=== PATIENT | male | born 1965 | race Caucasian/White ===

== ENCOUNTER 2018-03-06 14:04 | Inpatient (IN) | payer OTHER ==
[2018-03-06 15:24] VITALS: BMI 24.9
[2018-03-06] MEDS ORDERED: MELATONIN 5 MG TABLETS PO PRN (22:00)
--- NOTE | 2018-03-06 23:30 | HP ---
COWS - Scale Resting Pulse: 0= [place] 80 or Below Sweatin= Chills/Flushing Restless Observation: 1= Difficult to Sit Still Pupil Size: 0= Normal to Room Light Bone or Joint Aches: 1= Mild Discomfort Runny Nose/ Eye Tearin= Runny Nose/Eyes GI Upset > 30mins: 3= Vomiting/Diarrhea Tremor Observation: 1= Tremor [place], Not Seen Yawning Observation: 2= >3x During Session Anxiety or Irritability: 1=Feels Anxious/Irritable Goose Flesh Skin: 0=Smooth Skin COWS Score: 12 Admission [facility] - HPI Chief Complaint: " I am here for detox and I want to go to rehab." Allergies/Adverse Reactions: Allergies Allergy/AdvReac Type Severity Reaction Status Date / Time No Known Allergies Allergy Verified 03/06/18 17:21 History of Present Illness: 53 yo male with hx IV heroin and nicotine dependence is here seeking detox. PMHX : HIV +, Hep C, neuropathy, anxiety. Denies suicidal / homicidal ideation or suicide attempts. Reports longest year of sobriety while incarcerated, reports relapsed 8 months ago after he was release from senior care. Reports last detox 1.5 months at [facility]. Exam Limitations: No Limitations - Ebola screening Have you traveled outside of the country in the last 21 days: No (N) Have you had contact with anyone from an Ebola affected area: No Have you been sick,other than usual withdrawal symptoms: No Do you have a fever: No - Review of Systems Constitutional: Chills, Changes in sleep, Unintentional Wgt. Loss EENT: reports: Nose Congestion Respiratory: reports: No Symptoms reported Cardiac: reports: No Symptoms Reported GI: reports: Nausea, Poor Appetite, Poor Fluid Intake : reports: No Symptoms Reported Musculoskeletal: reports: Back Pain, Joint Pain Integumentary: reports: No Symptoms Reported Neuro: reports: Numbness (dx neuropathy on both feet) Endocrine: reports: Increased Thirst Hematology: reports: No Symptoms Reported Psychiatric: reports: Orientated x3, Depressed Other Systems: Reviewed and Negative Patient History - Patient Medical History Hx Anemia: No Hx Asthma: No Hx Chronic Obstructive Pulmonary Disease (COPD): No Hx Cancer: No Hx Cardiac Disorders: No Hx Congestive Heart Failure: No Hx Hypertension: No Hx Hypercholesterolemia: No Hx Pacemaker: No HX Cerebrovascular Accident: No Hx Seizures: No Hx Dementia: No Hx Diabetes: No Hx Gastrointestinal Disorders: No Hx Liver Disease: Yes (Hep C , pending MRI ) Hx Genitourinary Disorders: No Hx Sexually Transmitted Disorders: No Hx Renal Disease (ESRD): No Hx Thyroid Disease: No Hx Human Immunodeficiency Virus (HIV): Yes (HIV + on Genvoya ) Hx Hepatitis C: Yes Hx Depression: Yes Hx Suicide Attempt: No Hx Bipolar Disorder: No Hx Schizophrenia: No - Patient Surgical History Past Surgical History: Yes Hx Neurologic Surgery: No Hx Cataract Extraction: No Hx Cardiac Surgery: No Hx Lung Surgery: No Hx Breast Surgery: No Hx Breast Biopsy: No Hx Abdominal Surgery: No Hx Appendectomy: No Hx Cholecystectomy: No Hx Genitourinary Surgery: No Hx Section: No Hx Orthopedic Surgery: Yes Other Surgical History: RT INDEX FINGER SX Anesthesia Reaction: No - PPD History Previous Implant?: Yes Documented Results: Positive w/o proof PPD to be Administered?: No - Reproductive History Patient is a Female of Child Bearing Age (11 -55 yrs old): No - Smoking Cessation Smoking history: Current every day smoker Have you smoked in the past 12 months: Yes Aproximately how many cigarettes per day: 20 Hx Chewing Tobacco Use: No Initiated information on smoking cessation: Yes 'Breaking Loose' booklet given: 03/06/18 - Substance & Tx. History Hx Alcohol Use: No Hx Substance Use: Yes Substance Use Type: Heroin Hx Substance Use Treatment: Yes (Reports last detox 1.5 months at [facility].) - Substances Abused Heroin Route: Injection Frequency: Daily Amount used: 5 bags Age of first use: 18 Date of Last Use: 03/05/18 Non-Rx Methadone Route: Oral Frequency: Daily Amount used: 80mg Age of first use: 30 Date of Last Use: 03/05/18 Family Disease History - Family Disease History Family Disease History: Diabetes: Grandparent ( ), Other: Father ( , kidney failure ), Mother (alive and well ) Admission Physical Exam BHS - Vital Signs Vital Signs: Vital Signs - 24 hr 03/06/18 15:23 Temperature 97.8 F Pulse Rate 72 Respiratory 20 Rate Blood Pressure 107/71 - Physical General Appearance: Yes: Mild Distress, Thin, Sweating, Anxious HEENTM: Yes: EOMI, Hearing grossly Normal, Normal ENT Inspection, Normocephalic , Normal Voice, LUIS, Pharynx Normal, Tm's normal Respiratory: Yes: Chest Non-Tender, Lungs Clear, Normal Breath Sounds, No Respiratory Distress, No Accessory Muscle Use Neck: Yes: No masses,lesions,Nodules, Trachea in good position Breast: Yes: Breast Exam Deferred Cardiology: Yes: Regular Rhythm, Regular Rate Abdominal: Yes: Normal Bowel Sounds, Non Tender, Flat, Soft Genitourinary: Yes: Within Normal Limits Back: Yes: Normal Inspection Musculoskeletal: Yes: full range of Motion, Gait Steady, Pelvis Stable Extremities: Yes: Normal Capillary Refill, Normal Inspection, Normal Range of Motion, Non-Tender Neurological: Yes: vice president of communications II-XII NML intact, Fully Oriented, Alert, Motor Strength 5/5, Depressed Affect Integumentary: Yes: Normal Color, Warm, Moist Lymphatic: Yes: Within Normal Limits - Diagnostic (1) Opioid dependence with withdrawal Current Visit: Yes Status: Acute (2) Nicotine dependence Current Visit: Yes Status: Acute Qualifiers: Nicotine product type: cigarettes (3) Neuropathy Current Visit: Yes Status: Chronic (4) Anxious mood Current Visit: Yes Status: Acute (5) HIV (human immunodeficiency virus infection) Current Visit: Yes Status: Chronic Comment: on Genvoya Cleared for Admission [facility] - Detox or Rehab [facility] Level of Care: Medically Managed Detox Regimen/Protocol: Methadone [facility] Breath Alcohol Content Breath Alcohol Content: 0 Urine Drug Screen - Results Drug Screen Negative: No Urine Drug Screen Results: OPI-Opiates, MTD-Methadone
[2018-03-06] MEDS ORDERED: ACETAMINOPHEN 325 MG TABLET (FP) PO PRN (23:37)
[2018-03-06] MEDS ORDERED: MENTHOL/PHENOL 1 EACH UD MM PRN (23:37)
[2018-03-06] MEDS ORDERED: IBUPROFEN 400 MG TABLET (FP) PO PRN (23:37)
[2018-03-06] MEDS ORDERED: hydrOXYzine PAMOATE 50 MG CAPSULE (FP) PO PRN (23:37)
[2018-03-06] MEDS ORDERED: LOPERAMIDE HCL 2 MG CAPSULE PO PRN (23:37)
[2018-03-06] MEDS ORDERED: MAG HYDROX/AL HYDROX/SIMETH 30 ML UNIT-DOSE CUP PO PRN (23:37)
[2018-03-06] MEDS ORDERED: MAGNESIUM CITRATE 300 ML BOTTLE PO PRN (23:37)
[2018-03-06] MEDS ORDERED: guaiFENesin/D-METHORPHAN HB 10 ML UNIT-DOSE CUPS PO PRN (23:37)
[2018-03-06] MEDS ORDERED: NICOTINE POLACRILEX 2 MG GUM BC PRN (23:37)
[2018-03-06] MEDS ORDERED: MAGNESIUM HYDROX 2400MG/30ML ORAL SUSPENSION 30 ML CUP PO PRN (23:37)
[2018-03-07] MEDS ORDERED: METHADONE HCL 10 MG TABLET (FOR DETOX USE ONLY) PO ONE ×2 (01:22→23:00)
[2018-03-07] MEDS: diazePAM 5 MG TABLET PO PRN ×2 (01:33→10:40)
[2018-03-07] MEDS ORDERED: GABAPENTIN 300 MG CAPSULE (FP) PO SCH (06:00)
[2018-03-07] MEDS: METHADONE HCL 10 MG TABLET (FOR DETOX USE ONLY) PO ONE ×3 (10:00→11:08)
[2018-03-07 10:11] LABS: HEMATOCRIT 41.4 % (35.4-49); HEMOGLOBIN 14.2 GM/dL (11.7-16.9); MCH 30.8 pg (25.7-33.7); MCHC 34.2 g/dl (32.0-35.9); MEAN CELL VOLUME 90.2 fl (80-96); MEAN PLT VOLUME 9.6 fl (7.5-11.1); PLATELET COUNT 158 K/MM3 (134-434); RDW 13.5 % (11.9-15.9); WHITE BLOOD COUNT 4.1 K/mm3 (4.0-10.0)
[2018-03-07 10:19] LABS: CHLORIDE 104 mmol/L (98-107); POTASSIUM 4.4 mmol/L (3.5-5.1); SODIUM 139 mmol/L (136-145)
[2018-03-07 10:28] LABS: ALBUMIN 3.3 g/dl (3.4-5.0); ALK PHOS 62 U/L (45-117); ANION GAP 5 (8-16); BILIRUBIN,TOTAL 0.6 mg/dL (0.2-1.0); BLOOD UREA NITROGEN 13 mg/dL (7-18); CALCIUM 8.1 mg/dL (8.5-10.1); CO2 30 mmol/L (21-32); CREATININE 0.8 mg/dL (0.7-1.3); GLUCOSE,RANDOM 88 mg/dL (74-106); SGOT/AST 131 U/L (15-37); SGPT/ALT 154 U/L (12-78)
[2018-03-07] MEDS: NICOTINE 21 MG/24 HOURS TOPICAL PATCH TD SCH (10:39)
[2018-03-07] MEDS: ELVITEG/COB/EMTRI/TENOF (GENVOYA) TABLET (NF) PO SCH (10:41)
[2018-03-07] MEDS: PRENATAL VITAMINS W/ FOLIC ACID TABLET (FP) PO SCH (10:41)
--- NOTE | 2018-03-07 11:05 | CONSULT ---
[facility] Psychiatric Consult - Data Date of interview: 03/07/18 Admission source: [facility] Identifying data: The patient is 53 yo H single male father of 3,resides in Supportive Housing,supported by PA. Substance Abuse History: Patient reports starting using Heroin injection since 18 years old ,currently about 5 bags daily IV.,[address] using street Methadone about 8- mg po daily since 30 yo. Medical History: Significant for HIV+,Neuropathy. Psychiatric History: Patient reports first contact with psychiatrist was in 1999 while being in [facility] treatment to address anxiety,mood instability.He was placed on Trazodone,then on Xanax and Vistaril.REports no psychiatric admissions,no history of suicidal attempts.Patient is not under psychiatric care.REpors sleeping difficulties on and off,requesting TRazodone 100 mg po hs. Physical/Sexual Abuse/Trauma History: denies Mental Status Exam - Mental Status Exam Alert and Oriented to: Time, Place, Person Cognitive Function: Grossly Intact Patient Appearance: Unkempt Mood: Sad, Irritable Affect: Mood Congruent, Labile Patient Behavior: Cooperative Speech Pattern: Clear Voice Loudness: Normal Thought Process: Goal Oriented Thought Disorder: Not Present Hallucinations: Denies Suicidal Ideation: Denies Homicidal Ideation: Denies Insight/Judgement: Fair Sleep: Fair Appetite: Fair Muscle strength/Tone: Normal Gait/Station: Normal Psychiatric Findings - Problem List ([place] 1, 2,3) (1) Nicotine dependence Current Visit: Yes Status: Chronic Qualifiers: Nicotine product type: cigarettes (2) HIV (human immunodeficiency virus infection) Current Visit: Yes Status: Chronic Comment: on Genvoya (3) Neuropathy Current Visit: Yes Status: Chronic (4) Opioid dependence Current Visit: Yes Status: Chronic (5) Substance induced mood disorder Current Visit: Yes Status: Chronic - Initial Treatment Plan Initial Treatment Plan: Trazodone 100 mg po hs,Neurontin 600 mg po tid(for neuropathy from medical dr).
[2018-03-07] MEDS: GABAPENTIN 300 MG CAPSULE (FP) PO SCH ×3 (11:19→22:29)
--- NOTE | 2018-03-07 11:27 | PN ---
BHS COWS - Scale Resting Pulse: 0= [place] 80 or Below Sweatin= Chills/Flushing Restless Observation: 1= Difficult to Sit Still Pupil Size: 1= Pupils >than Normal Bone or Joint Aches: 1= Mild Discomfort Runny Nose/ Eye Tearin= Nasal Congestion GI Upset > 30mins: 1= Stomach Cramp Tremor Observation of Outstretched Hands: 1= Tremor [place], Not Seen Yawning Observation: 2= >3x During Session Anxiety or Irritability: 2=Irritable/Anxious Goose Flesh Skin: 0=Smooth Skin COWS Score: 11 BHS Progress Note (SOAP) Subjective: body ache sweat tremor mild diarrhea tolerated food and fluid well trouble sleep at night Objective: 03/07/18 11:25 Vital Signs Temperature 98.1 F 03/07/18 10:20 Pulse Rate 78 03/07/18 10:20 Respiratory Rate 16 03/07/18 10:20 Blood Pressure 101/74 03/07/18 10:20 O2 Sat by Pulse Oximetry (%) Laboratory Last Values WBC 4.1 K/mm3 (4.0-10.0) 03/07/18 07:30 RBC 4.60 M/mm3 (4.00-5.60) 03/07/18 07:30 Hgb 14.2 GM/dL (11.7-16.9) 03/07/18 07:30 Hct 41.4 % (35.4-49) 03/07/18 07:30 MCV 90.2 fl (80-96) 03/07/18 07:30 MCH 30.8 pg (25.7-33.7) 03/07/18 07:30 MCHC 34.2 g/dl (32.0-35.9) 03/07/18 07:30 RDW 13.5 % (11.9-15.9) 03/07/18 07:30 Plt Count 158 K/MM3 (134-434) 03/07/18 07:30 MPV 9.6 fl (7.5-11.1) 03/07/18 07:30 Sodium 139 mmol/L (136-145) 03/07/18 07:30 Potassium 4.4 mmol/L (3.5-5.1) 03/07/18 07:30 Chloride 104 mmol/L (98-107) 03/07/18 07:30 Carbon Dioxide 30 mmol/L (21-32) 03/07/18 07:30 Anion Gap 5 (8-16) L 03/07/18 07:30 BUN 13 mg/dL (7-18) 03/07/18 07:30 Creatinine 0.8 mg/dL (0.7-1.3) 03/07/18 07:30 Creat Clearance w eGFR > 60 (>60) 03/07/18 07:30 Random Glucose 88 mg/dL (74-106) 03/07/18 07:30 Calcium 8.1 mg/dL (8.5-10.1) L 03/07/18 07:30 Total Bilirubin 0.6 mg/dL (0.2-1.0) 03/07/18 07:30 AST 131 U/L (15-37) H 03/07/18 07:30 ALT 154 U/L (12-78) H 03/07/18 07:30 Alkaline Phosphatase 62 U/L (45-117) 03/07/18 07:30 Total Protein 8.0 g/dl (6.4-8.2) 03/07/18 07:30 Albumin 3.3 g/dl (3.4-5.0) L 03/07/18 07:30 lab noted repeat sgot sgat Assessment: 03/07/18 11:26 withdrawal sx 03/07/18 11:26 liver enzyme elevation Plan: continue detox repeat lab
--- NOTE | 2018-03-07 12:03 | EKG ---
Test Reason : Blood Pressure : / mmHG Vent. Rate : 060 BPM Atrial Rate : 060 BPM P-R Int : 188 ms QRS Dur : 082 ms QT Int : 392 ms P-R-T Axes : 067 064 053 degrees QTc Int : 392 ms NORMAL SINUS RHYTHM NORMAL ECG NO PREVIOUS ECGS AVAILABLE Confirmed by KAROL SOFIA, BALAJI ([id number]) on 03/07/2018 12:02:44 PM Referred By: Confirmed By:BALAJI ROBERSON MD
[2018-03-07] MEDS: hydrOXYzine PAMOATE 50 MG CAPSULE (FP) PO SCH ×2 (14:26→22:31)
[2018-03-07 16:17] LABS: URINE APPEARANCE TURBID; URINE BILIRUBIN NEGATIVE (<2.0 mg/dL); URINE COLOR DKYELLOW; URINE GLUCOSE (UA) NEGATIVE (NEGATIVE); URINE KETONE NEGATIVE (NEGATIVE); URINE LEUK ESTERASE NEGATIVE (NEGATIVE); URINE NITRITE NEGATIVE (NEGATIVE); URINE PROTEIN NEGATIVE (NEGATIVE); URINE UROBILINOGEN 4.0 E.U/dl mg/dL (0.2-1.0)
[2018-03-07] MEDS: THIAMINE HCL 100 MG TABLET (FP) PO SCH (22:29)
[2018-03-07] MEDS: traZODone HCL 100 MG TABLET (FP) PO SCH (22:29)
[2018-03-08] MEDS: hydrOXYzine PAMOATE 50 MG CAPSULE (FP) PO SCH ×3 (05:36→22:26)
[2018-03-08] MEDS: GABAPENTIN 300 MG CAPSULE (FP) PO SCH ×3 (05:36→22:26)
[2018-03-08] MEDS ORDERED: METHADONE HCL 10 MG TABLET (FOR DETOX USE ONLY) PO ONE (10:00)
--- NOTE | 2018-03-08 10:24 | PN ---
BHS COWS - Scale Resting Pulse: 0= [place] 80 or Below Sweatin= Chills/Flushing Restless Observation: 1= Difficult to Sit Still Pupil Size: 1= Pupils >than Normal Bone or Joint Aches: 1= Mild Discomfort Runny Nose/ Eye Tearin= Nasal Congestion GI Upset > 30mins: 1= Stomach Cramp Tremor Observation of Outstretched Hands: 1= Tremor [place], Not Seen Yawning Observation: 2= >3x During Session Anxiety or Irritability: 1=Feels Anxious/Irritable Goose Flesh Skin: 0=Smooth Skin COWS Score: 10 BHS Progress Note (SOAP) Subjective: joint pain body ache anxiety tremor trouble sleep at night gi distress Objective: 03/08/18 10:25 Vital Signs Temperature 98.1 F 03/08/18 10:19 Pulse Rate 81 03/08/18 10:19 Respiratory Rate 17 03/08/18 10:19 Blood Pressure 113/67 03/08/18 10:19 O2 Sat by Pulse Oximetry (%) Laboratory Last Values WBC 4.1 K/mm3 (4.0-10.0) 03/07/18 07:30 RBC 4.60 M/mm3 (4.00-5.60) 03/07/18 07:30 Hgb 14.2 GM/dL (11.7-16.9) 03/07/18 07:30 Hct 41.4 % (35.4-49) 03/07/18 07:30 MCV 90.2 fl (80-96) 03/07/18 07:30 MCH 30.8 pg (25.7-33.7) 03/07/18 07:30 MCHC 34.2 g/dl (32.0-35.9) 03/07/18 07:30 RDW 13.5 % (11.9-15.9) 03/07/18 07:30 Plt Count 158 K/MM3 (134-434) 03/07/18 07:30 MPV 9.6 fl (7.5-11.1) 03/07/18 07:30 Sodium 139 mmol/L (136-145) 03/07/18 07:30 Potassium 4.4 mmol/L (3.5-5.1) 03/07/18 07:30 Chloride 104 mmol/L (98-107) 03/07/18 07:30 Carbon Dioxide 30 mmol/L (21-32) 03/07/18 07:30 Anion Gap 5 (8-16) L 03/07/18 07:30 BUN 13 mg/dL (7-18) 03/07/18 07:30 Creatinine 0.8 mg/dL (0.7-1.3) 03/07/18 07:30 Creat Clearance w eGFR > 60 (>60) 03/07/18 07:30 Random Glucose 88 mg/dL (74-106) 03/07/18 07:30 Calcium 8.1 mg/dL (8.5-10.1) L 03/07/18 07:30 Total Bilirubin 0.6 mg/dL (0.2-1.0) 03/07/18 07:30 AST 131 U/L (15-37) H 03/07/18 07:30 ALT 154 U/L (12-78) H 03/07/18 07:30 Alkaline Phosphatase 62 U/L (45-117) 03/07/18 07:30 Total Protein 8.0 g/dl (6.4-8.2) 03/07/18 07:30 Albumin 3.3 g/dl (3.4-5.0) L 03/07/18 07:30 Urine Color Dkyellow 03/07/18 11:00 Urine Appearance Turbid 03/07/18 11:00 Urine pH 7.0 (5.0-8.0) 03/07/18 11:00 Ur Specific [place] 1.024 (1.001-1.035) 03/07/18 11:00 Urine Protein Negative (NEGATIVE) 03/07/18 11:00 Urine Glucose (UA) Negative (NEGATIVE) 03/07/18 11:00 Urine Ketones Negative (NEGATIVE) 03/07/18 11:00 Urine Blood Negative (NEGATIVE) 03/07/18 11:00 Urine Nitrite Negative (NEGATIVE) 03/07/18 11:00 Urine Bilirubin Negative (<2.0 mg/dL) 03/07/18 11:00 Urine Urobilinogen 4.0 e.u/dl mg/dL (0.2-1.0) 03/07/18 11:00 Ur Leukocyte Esterase Negative (NEGATIVE) 03/07/18 11:00 RPR Titer Nonreactive (NONREACTIVE) 03/07/18 07:30 lab noted Assessment: 03/08/18 10:26 withdrawal sx Plan: continue detox
[2018-03-08] MEDS: PRENATAL VITAMINS W/ FOLIC ACID TABLET (FP) PO SCH (11:22)
[2018-03-08] MEDS: ELVITEG/COB/EMTRI/TENOF (GENVOYA) TABLET (NF) PO SCH (11:22)
[2018-03-08] MEDS: NICOTINE 21 MG/24 HOURS TOPICAL PATCH TD SCH (11:23)
[2018-03-08] MEDS: diazePAM 5 MG TABLET PO PRN ×2 (11:28→22:27)
[2018-03-08 12:33] LABS: SGOT/AST 117 U/L (15-37); SGPT/ALT 138 U/L (12-78)
[2018-03-08] MEDS: THIAMINE HCL 100 MG TABLET (FP) PO SCH (22:26)
[2018-03-08] MEDS: traZODone HCL 100 MG TABLET (FP) PO SCH (22:27)
[2018-03-09] MEDS: GABAPENTIN 300 MG CAPSULE (FP) PO SCH ×3 (05:44→22:32)
[2018-03-09] MEDS: hydrOXYzine PAMOATE 50 MG CAPSULE (FP) PO SCH ×3 (05:44→22:32)
[2018-03-09] MEDS ORDERED: METHADONE HCL 5 MG TABLET (FOR DETOX USE ONLY) PO ONE (10:00)
[2018-03-09] MEDS: ELVITEG/COB/EMTRI/TENOF (GENVOYA) TABLET (NF) PO SCH (10:30)
[2018-03-09] MEDS: PRENATAL VITAMINS W/ FOLIC ACID TABLET (FP) PO SCH (10:31)
[2018-03-09] MEDS: NICOTINE 21 MG/24 HOURS TOPICAL PATCH TD SCH (10:31)
[2018-03-09] MEDS: diazePAM 5 MG TABLET PO PRN ×2 (10:31→22:32)
--- NOTE | 2018-03-09 11:38 | PN ---
S Progress Note (SOAP) Subjective: body ache joint pain sweat tremor trouble sleep at night Objective: 03/09/18 11:45 Vital Signs Temperature 98.9 F 03/09/18 09:51 Pulse Rate 90 03/09/18 09:51 Respiratory Rate 20 03/09/18 09:51 Blood Pressure 125/81 03/09/18 09:51 O2 Sat by Pulse Oximetry (%) Laboratory Last Values WBC 4.1 K/mm3 (4.0-10.0) 03/07/18 07:30 RBC 4.60 M/mm3 (4.00-5.60) 03/07/18 07:30 Hgb 14.2 GM/dL (11.7-16.9) 03/07/18 07:30 Hct 41.4 % (35.4-49) 03/07/18 07:30 MCV 90.2 fl (80-96) 03/07/18 07:30 MCH 30.8 pg (25.7-33.7) 03/07/18 07:30 MCHC 34.2 g/dl (32.0-35.9) 03/07/18 07:30 RDW 13.5 % (11.9-15.9) 03/07/18 07:30 Plt Count 158 K/MM3 (134-434) 03/07/18 07:30 MPV 9.6 fl (7.5-11.1) 03/07/18 07:30 Sodium 139 mmol/L (136-145) 03/07/18 07:30 Potassium 4.4 mmol/L (3.5-5.1) 03/07/18 07:30 Chloride 104 mmol/L (98-107) 03/07/18 07:30 Carbon Dioxide 30 mmol/L (21-32) 03/07/18 07:30 Anion Gap 5 (8-16) L 03/07/18 07:30 BUN 13 mg/dL (7-18) 03/07/18 07:30 Creatinine 0.8 mg/dL (0.7-1.3) 03/07/18 07:30 Creat Clearance w eGFR > 60 (>60) 03/07/18 07:30 Random Glucose 88 mg/dL (74-106) 03/07/18 07:30 Calcium 8.1 mg/dL (8.5-10.1) L 03/07/18 07:30 Total Bilirubin 0.6 mg/dL (0.2-1.0) 03/07/18 07:30 AST 117 U/L (15-37) H 03/08/18 07:00 ALT 138 U/L (12-78) H 03/08/18 07:00 Alkaline Phosphatase 62 U/L (45-117) 03/07/18 07:30 Total Protein 8.0 g/dl (6.4-8.2) 03/07/18 07:30 Albumin 3.3 g/dl (3.4-5.0) L 03/07/18 07:30 Urine Color Dkyellow 03/07/18 11:00 Urine Appearance Turbid 03/07/18 11:00 Urine pH 7.0 (5.0-8.0) 03/07/18 11:00 Ur Specific [place] 1.024 (1.001-1.035) 03/07/18 11:00 Urine Protein Negative (NEGATIVE) 03/07/18 11:00 Urine Glucose (UA) Negative (NEGATIVE) 03/07/18 11:00 Urine Ketones Negative (NEGATIVE) 03/07/18 11:00 Urine Blood Negative (NEGATIVE) 03/07/18 11:00 Urine Nitrite Negative (NEGATIVE) 03/07/18 11:00 Urine Bilirubin Negative (<2.0 mg/dL) 03/07/18 11:00 Urine Urobilinogen 4.0 e.u/dl mg/dL (0.2-1.0) 03/07/18 11:00 Ur Leukocyte Esterase Negative (NEGATIVE) 03/07/18 11:00 RPR Titer Nonreactive (NONREACTIVE) 03/07/18 07:30 lab noted Assessment: 03/09/18 11:45 withdrawal sx Plan: continue detox
[2018-03-09] MEDS: THIAMINE HCL 100 MG TABLET (FP) PO SCH (22:32)
[2018-03-09] MEDS: traZODone HCL 100 MG TABLET (FP) PO SCH (23:17)
[2018-03-10] MEDS: hydrOXYzine PAMOATE 50 MG CAPSULE (FP) PO SCH ×3 (05:45→22:30)
[2018-03-10] MEDS: GABAPENTIN 300 MG CAPSULE (FP) PO SCH ×3 (05:45→22:30)
[2018-03-10] MEDS ORDERED: METHADONE HCL 5 MG TABLET (FOR DETOX USE ONLY) PO ONE (10:00)
[2018-03-10] MEDS: PRENATAL VITAMINS W/ FOLIC ACID TABLET (FP) PO SCH (10:30)
[2018-03-10] MEDS: NICOTINE 21 MG/24 HOURS TOPICAL PATCH TD SCH (10:31)
[2018-03-10] MEDS: ELVITEG/COB/EMTRI/TENOF (GENVOYA) TABLET (NF) PO SCH (10:31)
[2018-03-10] MEDS: P-EPHED 60MG/TRIPROLIDI 2.5MG TABLET PO PRN (13:40)
[2018-03-10] MEDS: traZODone HCL 100 MG TABLET (FP) PO SCH (22:30)
[2018-03-10] MEDS: THIAMINE HCL 100 MG TABLET (FP) PO SCH (22:30)
[2018-03-11] MEDS: hydrOXYzine PAMOATE 50 MG CAPSULE (FP) PO SCH ×3 (07:18→22:15)
[2018-03-11] MEDS: GABAPENTIN 300 MG CAPSULE (FP) PO SCH ×3 (07:19→22:14)
[2018-03-11] MEDS: ELVITEG/COB/EMTRI/TENOF (GENVOYA) TABLET (NF) PO SCH (10:31)
[2018-03-11] MEDS: METHADONE HCL 10 MG TABLET (FOR DETOX USE ONLY) PO ONE (10:31)
[2018-03-11] MEDS: PRENATAL VITAMINS W/ FOLIC ACID TABLET (FP) PO SCH (10:31)
[2018-03-11] MEDS: NICOTINE 21 MG/24 HOURS TOPICAL PATCH TD SCH (10:32)
--- NOTE | 2018-03-11 12:45 | PN ---
BHS Progress Note (SOAP) Subjective: sweats feeling ok Objective: 03/11/18 12:44 Vital Signs Temperature 97.0 F L 03/11/18 10:23 Pulse Rate 79 03/11/18 10:23 Respiratory Rate 18 03/11/18 10:23 Blood Pressure 101/63 03/11/18 10:23 O2 Sat by Pulse Oximetry (%) aaox3 ambulating no acute distress Assessment: 03/11/18 12:44 mild withdrawal sx Plan: continue detox d/c in am
[2018-03-11] MEDS: traZODone HCL 100 MG TABLET (FP) PO SCH (22:14)
[2018-03-11] MEDS: THIAMINE HCL 100 MG TABLET (FP) PO SCH (22:15)
[2018-03-11] MEDS: P-EPHED 60MG/TRIPROLIDI 2.5MG TABLET PO PRN (22:53)
[2018-03-12] MEDS: GABAPENTIN 300 MG CAPSULE (FP) PO SCH ×2 (05:36→15:11)
[2018-03-12] MEDS: hydrOXYzine PAMOATE 50 MG CAPSULE (FP) PO SCH ×2 (05:36→15:11)
[2018-03-12] MEDS ORDERED: METHADONE HCL 5 MG TABLET (FOR DETOX USE ONLY) PO ONE (06:00)
[2018-03-12 06:29] VITALS: TEMP 97.7
[2018-03-12] MEDS: PRENATAL VITAMINS W/ FOLIC ACID TABLET (FP) PO SCH (10:23)
[2018-03-12] MEDS: NICOTINE 21 MG/24 HOURS TOPICAL PATCH TD SCH (10:23)
[2018-03-12] MEDS: ELVITEG/COB/EMTRI/TENOF (GENVOYA) TABLET (NF) PO SCH (10:23)
--- NOTE | 2018-03-12 10:29 | DS ---
[facility] Detox Discharge Summary Admission Date: 03/06/18 Discharge Date: 03/12/18 - History Present History: Opioid Dependence Additional Comments: 53 years old male admitted on 03/06/18 for opiate withdrawal sx completed opiate detox regimen tolerate well denies opiate withdrawal sx alert oriented x 3 no acute distress wants after at [facility] brief motivational intervention x 5 health teaching on opiate mis use related to health consequences - Physical Exam Results Vital Signs: Vital Signs Temperature 97.7 F 03/12/18 09:40 Pulse Rate 99 H 03/12/18 09:40 Respiratory Rate 18 03/12/18 09:40 Blood Pressure 112/78 03/12/18 09:40 O2 Sat by Pulse Oximetry (%) Pertinent Admission Physical Exam Findings: withdrawal sx Vital Signs Temperature 97.7 F 03/12/18 09:40 Pulse Rate 99 H 03/12/18 09:40 Respiratory Rate 18 03/12/18 09:40 Blood Pressure 112/78 03/12/18 09:40 O2 Sat by Pulse Oximetry (%) Laboratory Last Values WBC 4.1 K/mm3 (4.0-10.0) 03/07/18 07:30 RBC 4.60 M/mm3 (4.00-5.60) 03/07/18 07:30 Hgb 14.2 GM/dL (11.7-16.9) 03/07/18 07:30 Hct 41.4 % (35.4-49) 03/07/18 07:30 MCV 90.2 fl (80-96) 03/07/18 07:30 MCH 30.8 pg (25.7-33.7) 03/07/18 07:30 MCHC 34.2 g/dl (32.0-35.9) 03/07/18 07:30 RDW 13.5 % (11.9-15.9) 03/07/18 07:30 Plt Count 158 K/MM3 (134-434) 03/07/18 07:30 MPV 9.6 fl (7.5-11.1) 03/07/18 07:30 Sodium 139 mmol/L (136-145) 03/07/18 07:30 Potassium 4.4 mmol/L (3.5-5.1) 03/07/18 07:30 Chloride 104 mmol/L (98-107) 03/07/18 07:30 Carbon Dioxide 30 mmol/L (21-32) 03/07/18 07:30 Anion Gap 5 (8-16) L 03/07/18 07:30 BUN 13 mg/dL (7-18) 03/07/18 07:30 Creatinine 0.8 mg/dL (0.7-1.3) 03/07/18 07:30 Creat Clearance w eGFR > 60 (>60) 03/07/18 07:30 Random Glucose 88 mg/dL (74-106) 03/07/18 07:30 Calcium 8.1 mg/dL (8.5-10.1) L 03/07/18 07:30 Total Bilirubin 0.6 mg/dL (0.2-1.0) 03/07/18 07:30 AST 117 U/L (15-37) H 03/08/18 07:00 ALT 138 U/L (12-78) H 03/08/18 07:00 Alkaline Phosphatase 62 U/L (45-117) 03/07/18 07:30 Total Protein 8.0 g/dl (6.4-8.2) 03/07/18 07:30 Albumin 3.3 g/dl (3.4-5.0) L 03/07/18 07:30 Urine Color Dkyellow 03/07/18 11:00 Urine Appearance Turbid 03/07/18 11:00 Urine pH 7.0 (5.0-8.0) 03/07/18 11:00 Ur Specific [place] 1.024 (1.001-1.035) 03/07/18 11:00 Urine Protein Negative (NEGATIVE) 03/07/18 11:00 Urine Glucose (UA) Negative (NEGATIVE) 03/07/18 11:00 Urine Ketones Negative (NEGATIVE) 03/07/18 11:00 Urine Blood Negative (NEGATIVE) 03/07/18 11:00 Urine Nitrite Negative (NEGATIVE) 03/07/18 11:00 Urine Bilirubin Negative (<2.0 mg/dL) 03/07/18 11:00 Urine Urobilinogen 4.0 e.u/dl mg/dL (0.2-1.0) 03/07/18 11:00 Ur Leukocyte Esterase Negative (NEGATIVE) 03/07/18 11:00 RPR Titer Nonreactive (NONREACTIVE) 03/07/18 07:30 lab noted - Treatment Hospital Course: Detox Protocol Followed, Detoxed Safely, Responded well, Discharged Condition Good, Rehab Referral Accepted Patient has Accepted a Rehab Referral to: [facility] - Medication Discharge Medications: Ambulatory Orders Elviteg/Cob/Emtri/Tenof Alafen [Genvoya Tablet] 1 each PO DAILY 03/06/18 traZODone HCL [Desyrel -] 100 mg PO HS #30 tablet 03/07/18 Gabapentin [Neurontin -] 300 mg PO TID #90 capsule 03/12/18 - Diagnosis (1) Opioid dependence with withdrawal Current Visit: Yes Status: Acute (2) HIV (human immunodeficiency virus infection) Current Visit: Yes Status: Chronic (3) Neuropathy Current Visit: Yes Status: Chronic (4) Nicotine dependence Current Visit: Yes Status: Acute Qualifiers: Nicotine product type: cigarettes Substance use status: in withdrawal Qualified Code(s): F17.213 - Nicotine dependence, cigarettes, with withdrawal - AMA Did Patient Leave Against Medical Advice: No
[2018-03-12 12:42] VITALS: BP 108/69; PULSE 80
== END 2018-03-12 15:26 | disposition other institution (70) | DRG 773 ==
LOC: YASAS 14:04 → Y6N 18:09
PROVIDERS: ADMIT Surgery; ATTEND Surgery
PROC: HZ2ZZZZ Detoxification Services for Substance Abuse Treatment (ICD-10-PCS; principal; 2018-03-06)
DX: F11.23 Opioid dependence with withdrawal (principal); F17.213 Nicotine dependence, cigarettes, with withdrawal; F41.9 Anxiety disorder, unspecified; G62.9 Polyneuropathy, unspecified; B18.2 Chronic viral hepatitis C; Z21 Asymptomatic human immunodeficiency virus [HIV] infection status
CPT/HCPCS: 36415; 71046-TC-FY; 80053; 81003; 84450; 84460; 85027; 86593; 93005; 93010

== ENCOUNTER 2018-03-12 15:28 | Inpatient (IN) | payer OTHER ==
--- NOTE | 2018-03-12 10:38 | HP ---
AVIS SOFIA Rehab Assess/Revision - Admission History Admitted to Rehab from: [facility] Date of Admission to Rehab: 03/12/18 - Findings Detox History & Physical reviewed: Yes Concur with findings: Yes Comments/Additional Findings: transferred from detox to rehab admission as per protocol Inpatient Rehab Admission - Rehab Admission Criteria Previous failed treatment: Yes Poor recovery environment: Yes Comorbidities: Yes Lacks judgement: No Patient is meeting Inpatient Rehab admission criteria:: Yes
[~2018-03-12 15:28] MED LIST: ACETAMINOPHEN 325 MG TABLET (FP) PO PRN; IBUPROFEN 400 MG TABLET (FP) PO PRN; LOPERAMIDE HCL 2 MG CAPSULE PO PRN; MAGNESIUM CITRATE 300 ML BOTTLE PO PRN; MAGNESIUM HYDROX 2400MG/30ML ORAL SUSPENSION 30 ML CUP PO PRN; MENTHOL/PHENOL 1 EACH UD MM PRN; NICOTINE 14 MG/24 HOURS TOPICAL PATCH TD PRN; NICOTINE POLACRILEX 2 MG GUM BUC PRN; P-EPHED 60MG/TRIPROLIDI 2.5MG TABLET PO PRN; guaiFENesin/D-METHORPHAN HB 10 ML UNIT-DOSE CUPS PO PRN
--- NOTE | 2018-03-12 19:18 | PN ---
[facility] Progress Note Note: called by a nurse to enter trazodone order, reviewed the chart, patient was at [facility] and seen by and continued med, will add tazodone 100 mg po hs
[2018-03-12] MEDS ORDERED: traZODone HCL 100 MG TABLET (FP) PO SCH (22:00)
[2018-03-12] MEDS: THIAMINE HCL 100 MG TABLET (FP) PO SCH (22:31)
[2018-03-12] MEDS: MELATONIN 5 MG TABLETS PO PRN (22:34)
--- NOTE | 2018-03-13 06:18 | HP ---
Psychiatrist Admission - Data Date of interview: 03/13/18 Admission source: 6N Identifying data: This is the first [facility] admission for this 53 years old single male, father of 3 children, unemployed on [employer], [facility] [facility] Medical History: Significant for HIV+, hepatitis C, neuropathy, PPD+ and history of orthosurgery for fracture right index finger in 2009. Smokes cigarettes 1ppd Psychiatric History: Patient reports first contact with psychiatrist was in 1999 while being in [facility] treatment to address anxiety,mood instability.He was placed on Trazodone,then on Xanax and Vistaril. Following discharge from the rehab he claims that he saw psychiatrist in [place] then in [place] who prescribed him these medications that he took on & off till he went to [facility] in 2011. Reports that he was released from [facility] 8 months ago and while there he was prescribed Klonopin and some other medications. He has been off medication since his release. Denies previous psychiatric admission or suicidal attempt. He was seen by Dr Irizarry on 03/07/18 while in detox and was prescribed Trazadone 100 mg po HS for insomnia. Told sign writer hand that he is too drowsy on that dose and requests a dose reduction. At present, reports feeling depressed and sleeping poorly Physical/Sexual Abuse/Trauma History: Denies history of emotional, physical or sexual abuse as well as DV relationship. No service Additional Comment: Reports history of multiple previous arrests including 5 felony convictions. Reports being on parole till 2021 Vital Signs: Vital Signs - 24 hr 03/12/18 03/13/18 03/13/18 15:42 03:30 04:49 Temperature 97.7 F Pulse Rate 94 H Respiratory 18 18 18 Rate Blood Pressure 118/73 Allergies/Adverse Reactions: Allergies Allergy/AdvReac Type Severity Reaction Status Date / Time No Known Allergies Allergy Verified 03/06/18 17:21 Date of last physical exam: 03/06/18 Concur with the findings of this exam: Yes - Substance Abuse/Tx History Hx Alcohol Use: No Hx Substance Use: Yes Substance Use Type: Heroin (Started using heroin at age 18, consumes 5 bags daily. Last used on 03/05/18), Opiates (Started using non Rx methadone at age 30 , consumes 80 mg/day. Last used on 03/05/18) Mental Status Exam - Mental Status Exam Alert and Oriented to: Time, Place, Person Cognitive Function: Fair Patient Appearance: Well Groomed Mood: Depressed Affect: Appropriate Patient Behavior: Cooperative Speech Pattern: Clear Voice Loudness: Normal Thought Process: Intact, Goal Oriented Hallucinations: Denies Suicidal Ideation: Denies Homicidal Ideation: Denies Insight/Judgement: Fair Sleep: Poorly Appetite: Good Muscle strength/Tone: Normal, Severe Hypotonicity Psychiatric Findings - Problem List ([place] 1, 2,3) (1) Opioid dependence Current Visit: No Status: Acute (2) Nicotine dependence Current Visit: No Status: Chronic Qualifiers: Nicotine product type: cigarettes Substance use status: in withdrawal Qualified Code(s): F17.213 - Nicotine dependence, cigarettes, with withdrawal (3) Substance induced mood disorder Current Visit: Yes Status: Acute (4) Substance-induced sleep disorder Current Visit: Yes Status: Acute (5) HIV (human immunodeficiency virus infection) Current Visit: No Status: Chronic Comment: on Genvoya (6) Neuropathy Current Visit: No Status: Chronic (7) Hepatitis C Current Visit: Yes Status: Chronic (8) PPD positive Current Visit: Yes Status: Chronic - Initial Treatment Plan Initial Treatment Plan: 1) Discontinue Trazadone 100 mg po HS ordered by Dr Salazar. 2) Start Trazadone 50 mg po HS for insomnia. 3) Monitor progress
[2018-03-13] MEDS: PRENATAL VITAMINS W/ FOLIC ACID TABLET (FP) PO SCH (09:56)
[2018-03-13] MEDS ORDERED: PNEUMOC 13-VAL CONJ-DIP CRM/PF 0.5 ML DISP.SYRIN IM ONE (12:00)
--- NOTE | 2018-03-13 14:46 | PN ---
[facility] Progress Note Note: Elevated AST and ALT . d/c tylenol hepatic function panel order
[2018-03-13] MEDS: MAG HYDROX/AL HYDROX/SIMETH 30 ML UNIT-DOSE CUP PO PRN ×2 (15:08→22:34)
[2018-03-13] MEDS: GABAPENTIN PO SCH ×2 (16:06→21:12)
[2018-03-13] MEDS: traZODone HCL 50 MG TABLET (FP) PO SCH (21:12)
[2018-03-13] MEDS: THIAMINE HCL 100 MG TABLET (FP) PO SCH (21:12)
[2018-03-13] MEDS ORDERED: GABAPENTIN 300 MG CAPSULE (FP) PO SCH (22:00)
[2018-03-14] MEDS: PRENATAL VITAMINS W/ FOLIC ACID TABLET (FP) PO SCH (09:51)
[2018-03-14] MEDS: GABAPENTIN PO SCH ×3 (09:51→21:34)
[2018-03-14 11:06] LABS: ALBUMIN 3.4 g/dl (3.4-5.0)
[2018-03-14 11:12] LABS: ALK PHOS 63 U/L (45-117); BILIRUBIN,DIRECT < 0.2 mg/dL (0.0-0.2); BILIRUBIN,TOTAL 0.3 mg/dL (0.2-1.0); SGOT/AST 97 U/L (15-37); SGPT/ALT 145 U/L (12-78); TOT PROT 8.3 g/dl (6.4-8.2)
[2018-03-14] MEDS: MAG HYDROX/AL HYDROX/SIMETH 30 ML UNIT-DOSE CUP PO PRN (19:53)
[2018-03-14] MEDS: THIAMINE HCL 100 MG TABLET (FP) PO SCH (21:34)
[2018-03-14] MEDS: traZODone HCL 50 MG TABLET (FP) PO SCH (21:34)
[2018-03-15] MEDS: GABAPENTIN PO SCH ×3 (06:15→21:19)
[2018-03-15] MEDS: PRENATAL VITAMINS W/ FOLIC ACID TABLET (FP) PO SCH (09:34)
[2018-03-15] MEDS ORDERED: PT OWN MED DRAWER 7, Y5N ONE (09:37)
--- NOTE | 2018-03-15 15:33 | PN ---
S Progress Note Note: Vital Signs Temperature 98.1 F 03/15/18 06:52 Pulse Rate 82 03/15/18 06:52 Respiratory Rate 18 03/15/18 06:52 Blood Pressure 93/80 03/15/18 06:52 O2 Sat by Pulse Oximetry (%) gastric reflux protonix qd increase fluids continue to monitor
[2018-03-15] MEDS: PANTOPRAZOLE 20 MG TABLET (FP) PO SCH (16:08)
[2018-03-15] MEDS: MAG HYDROX/AL HYDROX/SIMETH 30 ML UNIT-DOSE CUP PO PRN (18:39)
[2018-03-15] MEDS: THIAMINE HCL 100 MG TABLET (FP) PO SCH (21:19)
[2018-03-15] MEDS: traZODone HCL 50 MG TABLET (FP) PO SCH (21:19)
[2018-03-16] MEDS: GABAPENTIN PO SCH ×3 (06:09→21:27)
[2018-03-16] MEDS: PANTOPRAZOLE 20 MG TABLET (FP) PO SCH (09:39)
[2018-03-16] MEDS: PRENATAL VITAMINS W/ FOLIC ACID TABLET (FP) PO SCH (09:39)
[2018-03-16] MEDS: THIAMINE HCL 100 MG TABLET (FP) PO SCH (21:27)
[2018-03-16] MEDS: traZODone HCL 50 MG TABLET (FP) PO SCH (21:27)
[2018-03-17] MEDS: GABAPENTIN PO SCH ×3 (06:09→21:44)
[2018-03-17] MEDS: PRENATAL VITAMINS W/ FOLIC ACID TABLET (FP) PO SCH (09:36)
[2018-03-17] MEDS: PANTOPRAZOLE 20 MG TABLET (FP) PO SCH (09:36)
[2018-03-17] MEDS: THIAMINE HCL 100 MG TABLET (FP) PO SCH (21:44)
[2018-03-17] MEDS: traZODone HCL 50 MG TABLET (FP) PO SCH (21:44)
[2018-03-18] MEDS: GABAPENTIN PO SCH ×3 (06:12→21:34)
[2018-03-18] MEDS: PRENATAL VITAMINS W/ FOLIC ACID TABLET (FP) PO SCH (09:42)
[2018-03-18] MEDS: PANTOPRAZOLE 20 MG TABLET (FP) PO SCH (09:42)
[2018-03-18] MEDS: traZODone HCL 50 MG TABLET (FP) PO SCH (21:33)
[2018-03-18] MEDS: THIAMINE HCL 100 MG TABLET (FP) PO SCH (21:34)
[2018-03-19] MEDS: GABAPENTIN PO SCH ×3 (06:30→21:30)
[2018-03-19] MEDS ORDERED: PT OWN MED DRAWER 7, Y5N ONE (08:32)
[2018-03-19] MEDS: PANTOPRAZOLE 20 MG TABLET (FP) PO SCH (09:58)
[2018-03-19] MEDS: PRENATAL VITAMINS W/ FOLIC ACID TABLET (FP) PO SCH (09:58)
[2018-03-19] MEDS: traZODone HCL 50 MG TABLET (FP) PO SCH (21:30)
[2018-03-19] MEDS: THIAMINE HCL 100 MG TABLET (FP) PO SCH (21:30)
[2018-03-19] MEDS: MELATONIN 5 MG TABLETS PO PRN (21:30)
[2018-03-20] MEDS ORDERED: PT OWN MED DRAWER 7, Y5N ONE (02:49)
[2018-03-20] MEDS: GABAPENTIN PO SCH ×3 (06:08→21:28)
[2018-03-20] MEDS: PANTOPRAZOLE 20 MG TABLET (FP) PO SCH (09:56)
[2018-03-20] MEDS: PRENATAL VITAMINS W/ FOLIC ACID TABLET (FP) PO SCH (09:56)
--- NOTE | 2018-03-20 15:12 | PN ---
"[facility] Progress Note Note: Patient reports he was taking 24 ml of Suboxone out patient and reports continues to experience withdrawal sx. Vital Signs Temperature 98.2 F 03/20/18 06:48 Pulse Rate 90 03/20/18 06:48 Respiratory Rate 18 03/20/18 06:48 Blood Pressure 109/67 03/20/18 06:48 O2 Sat by Pulse Oximetry (%) Laboratory Last Values Total Bilirubin 0.3 mg/dL (0.2-1.0) D 03/14/18 07:20 Direct Bilirubin < 0.2 mg/dL (0.0-0.2) 03/14/18 07:20 AST 97 U/L (15-37) H 03/14/18 07:20 ALT 145 U/L (12-78) H 03/14/18 07:20 Alkaline Phosphatase 63 U/L (45-117) 03/14/18 07:20 Total Protein 8.3 g/dl (6.4-8.2) H 03/14/18 07:20 Albumin 3.4 g/dl (3.4-5.0) 03/14/18 07:20 This report was requested by: Daniela Bolaños | Reference #: [id number] Others' Prescriptions Patient Name: Sreedhar Keating Date: 1965 Address: [address] [place] [address] Sex: Male Rx Written Rx Dispensed Drug Quantity Days Supply Prescriber Name 02/27/2018 03/03/2018 suboxone 12 mg-3 mg sl film 30 15 Fabiano Zacarias MD 02/14/2018 02/17/2018 suboxone 12 mg-3 mg sl film 30 15 Fabiano Zacarias MD 01/31/2018 02/02/2018 suboxone 12 mg-3 mg sl film 30 15 Fabiano Zacarias MD 01/03/2018 01/17/2018 suboxone 12 mg-3 mg sl film 30 15 Fabiano Zacarias MD 12/18/2017 01/03/2018 suboxone 12 mg-3 mg sl film 30 15 Fabiano Zacarias MD 11/29/2017 12/04/2017 suboxone 12 mg-3 mg sl film 60 30 Fabiano Zacarias MD 11/02/2017 11/04/2017 suboxone 12 mg-3 mg sl film 60 30 Fabiano Zacarias MD 10/04/2017 10/06/2017 suboxone 12 mg-3 mg sl film 60 30 Fabiano Zacarias MD 09/06/2017 09/07/2017 suboxone 12 mg-3 mg sl film 60 30 Fabiano Zacarias MD 08/23/2017 08/25/2017 suboxone 12 mg-3 mg sl film 30 15 Fabiano Zacarias MD 08/09/2017 08/14/2017 suboxone 12 mg-3 mg sl film 30 15 Fabiano Zacarias MD 07/26/2017 07/26/2017 suboxone 8 mg-2 mg sl film 30 15 Fabiano Zacarias MD 07/12/2017 07/12/2017 suboxone 8 mg-2 mg sl film 30 15 Fabiano Zacarias MD 06/28/2017 06/28/2017 suboxone 8 mg-2 mg sl film 20 10 Fabiano Zacarias MD A/P Patient AOx3 self directing, mild anxious no adventitious breath sounds ambulating in the unit - elevated AST - opioid withdrawal Start Suboxone 4mg today, adjust dose as needed increase fluids Hepatic function test and CBC Continue to monitor"
[2018-03-20] MEDS: BUPRENORPHINE/NALOXONE 2 MG/0.5 MG FILM PACKET SL SCH (17:05)
[2018-03-20] MEDS: THIAMINE HCL 100 MG TABLET (FP) PO SCH (21:28)
[2018-03-20] MEDS: traZODone HCL 50 MG TABLET (FP) PO SCH (21:28)
[2018-03-20] MEDS: MELATONIN 5 MG TABLETS PO PRN (21:28)
[2018-03-21] MEDS: GABAPENTIN PO SCH ×3 (06:03→21:25)
[2018-03-21] MEDS ORDERED: PT OWN MED DRAWER 7, Y5N ONE (09:31)
[2018-03-21] MEDS: BUPRENORPHINE/NALOXONE 2 MG/0.5 MG FILM PACKET SL SCH (09:54)
[2018-03-21] MEDS: PRENATAL VITAMINS W/ FOLIC ACID TABLET (FP) PO SCH (09:54)
[2018-03-21] MEDS: PANTOPRAZOLE 20 MG TABLET (FP) PO SCH (09:54)
[2018-03-21 10:44] LABS: BASO % 0.3 % (0-2.0); EOS % 1.9 % (0-4.5); HEMATOCRIT 39.1 % (35.4-49); HEMOGLOBIN 13.3 GM/dL (11.7-16.9); MCH 30.5 pg (25.7-33.7); MCHC 33.9 g/dl (32.0-35.9); MEAN CELL VOLUME 89.8 fl (80-96); MEAN PLT VOLUME 9.8 fl (7.5-11.1); MONO % 11.2 % (3.8-10.2); NEUT % 52.6 % (42.8-82.8); PLATELET COUNT 145 K/MM3 (134-434); RBC 4.35 M/mm3 (4.00-5.60); RDW 13.6 % (11.9-15.9); WHITE BLOOD COUNT 5.6 K/mm3 (4.0-10.0)
[2018-03-21 10:45] LABS: ALBUMIN 3.2 g/dl (3.4-5.0); BILIRUBIN,DIRECT < 0.2 mg/dL (0.0-0.2); BILIRUBIN,TOTAL 0.5 mg/dL (0.2-1.0); SGOT/AST 29 U/L (15-37); SGPT/ALT 50 U/L (12-78)
[2018-03-21 10:46] LABS: ALK PHOS 61 U/L (45-117); TOT PROT 8.3 g/dl (6.4-8.2)
--- NOTE | 2018-03-21 16:50 | PN ---
[facility] Progress Note Note: PATIENT PRESENTS WITH C/O ANXIETY, HEADACHE AND BODY ACHES. PATIENT DENIES CHEST PAIN AND SOB. Vital Signs Temperature 97.1 F L 03/21/18 06:50 Pulse Rate 81 03/21/18 06:50 Respiratory Rate 18 03/21/18 06:50 Blood Pressure 101/70 03/21/18 06:50 O2 Sat by Pulse Oximetry (%) Laboratory Tests 03/14/18 03/21/18 03/21/18 07:20 07:30 07:30 WBC 5.6 D RBC 4.35 Hgb 13.3 Hct 39.1 MCV 89.8 MCH 30.5 MCHC 33.9 RDW 13.6 Plt Count 145 MPV 9.8 Neutrophils % 52.6 Lymphocytes % 34.0 Monocytes % 11.2 H Eosinophils % 1.9 Basophils % 0.3 Nucleated RBC % 0 Total Bilirubin 0.3 D 0.5 D Direct Bilirubin < 0.2 < 0.2 AST 97 H 29 D ALT 145 H 50 D Alkaline Phosphatase 63 61 Total Protein 8.3 H 8.3 H Albumin 3.4 3.2 L OBJ: GENERAL: ALERT AND ORIENTED X 3. IN NO ACUTE DISTRESS. ANXIOUS SKIN: WARM, DRY AND INTACT EXT: FULL ROM, NO EDEMA NEURO: CN 1-X11 GROSSLY INTACT A/P: WITHDRAWAL SYMPTOMS SUBOXONE STARTED YESTERDAY AT 2MG BID. WILL CONTINUE SAME DOSE. WILL CONTINUE IBUPROFEN PRN ORAL FLUIDS MAINTAINED ADD CYCLOBENZAPRINE 10MG TID CONTINUE TO MONITOR CLINICALLY
[2018-03-21] MEDS: THIAMINE HCL 100 MG TABLET (FP) PO SCH (21:24)
[2018-03-21] MEDS: CYCLOBENZAPRINE HCL 10 MG TABLET (FP) PO SCH (21:24)
[2018-03-21] MEDS: traZODone HCL 50 MG TABLET (FP) PO SCH (21:24)
[2018-03-21] MEDS: MELATONIN 5 MG TABLETS PO PRN (21:25)
[2018-03-22] MEDS: CYCLOBENZAPRINE HCL 10 MG TABLET (FP) PO SCH ×3 (06:26→21:24)
[2018-03-22] MEDS: GABAPENTIN PO SCH ×3 (06:26→21:25)
[2018-03-22] MEDS: BUPRENORPHINE/NALOXONE 2 MG/0.5 MG FILM PACKET SL SCH (10:32)
[2018-03-22] MEDS: PRENATAL VITAMINS W/ FOLIC ACID TABLET (FP) PO SCH (10:32)
[2018-03-22] MEDS: PANTOPRAZOLE 20 MG TABLET (FP) PO SCH (10:32)
--- NOTE | 2018-03-22 16:41 | PN ---
[facility] Progress Note Note: Vital Signs Temperature 98.2 F 03/22/18 06:47 Pulse Rate 79 03/22/18 06:47 Respiratory Rate 18 03/22/18 06:47 Blood Pressure 112/71 03/22/18 06:47 O2 Sat by Pulse Oximetry (%) Patient requested Suboxone dose to increase, when question about his symptoms patient got up and walked off the exam room.
[2018-03-22] MEDS: THIAMINE HCL 100 MG TABLET (FP) PO SCH (21:24)
[2018-03-22] MEDS: traZODone HCL 50 MG TABLET (FP) PO SCH (21:24)
[2018-03-23] MEDS: GABAPENTIN PO SCH ×3 (06:01→21:22)
[2018-03-23] MEDS: CYCLOBENZAPRINE HCL 10 MG TABLET (FP) PO SCH ×3 (06:01→21:22)
[2018-03-23] MEDS: PANTOPRAZOLE 20 MG TABLET (FP) PO SCH (09:33)
[2018-03-23] MEDS: PRENATAL VITAMINS W/ FOLIC ACID TABLET (FP) PO SCH (09:33)
[2018-03-23] MEDS: BUPRENORPHINE/NALOXONE 2 MG/0.5 MG FILM PACKET SL SCH (09:34)
[2018-03-23] MEDS: THIAMINE HCL 100 MG TABLET (FP) PO SCH (21:22)
[2018-03-23] MEDS: traZODone HCL 50 MG TABLET (FP) PO SCH (21:22)
[2018-03-24] MEDS: GABAPENTIN PO SCH ×3 (06:08→21:04)
[2018-03-24] MEDS: CYCLOBENZAPRINE HCL 10 MG TABLET (FP) PO SCH ×3 (06:08→21:05)
[2018-03-24] MEDS: PANTOPRAZOLE 20 MG TABLET (FP) PO SCH (09:47)
[2018-03-24] MEDS: PRENATAL VITAMINS W/ FOLIC ACID TABLET (FP) PO SCH (09:47)
[2018-03-24] MEDS: BUPRENORPHINE/NALOXONE 2 MG/0.5 MG FILM PACKET SL SCH (09:47)
[2018-03-24] MEDS: THIAMINE HCL 100 MG TABLET (FP) PO SCH (21:04)
[2018-03-24] MEDS: traZODone HCL 50 MG TABLET (FP) PO SCH (21:05)
[2018-03-25] MEDS: CYCLOBENZAPRINE HCL 10 MG TABLET (FP) PO SCH ×3 (06:28→21:39)
[2018-03-25] MEDS: GABAPENTIN PO SCH ×3 (06:28→21:39)
[2018-03-25] MEDS: BUPRENORPHINE/NALOXONE 2 MG/0.5 MG FILM PACKET SL SCH (09:43)
[2018-03-25] MEDS: PANTOPRAZOLE 20 MG TABLET (FP) PO SCH (09:43)
[2018-03-25] MEDS: PRENATAL VITAMINS W/ FOLIC ACID TABLET (FP) PO SCH (09:43)
--- NOTE | 2018-03-25 14:56 | PN ---
Psychiatric Progress Note Vital Signs: Vital Signs Period Temp Pulse Resp BP Sys/[place]au Pulse Ox Last 24 Hr 98.0 F 104 18-18 108/79 Date of Session: 03/25/18 Chief Complaint:: Discharge Note HPI: Patient addressing Opioid Dependence comorbid with Nicotine Dependence, Substance-Induced Mood Disorder and Substance-Induced Sleep Disorder ROS: HIV, Neuropathy, Hep C Current Medications: Active Medications Generic Name Dose Route Start Last Admin Trade Name Freq PRN Reason Stop Dose Admin Al Hydroxide/Mg Hydroxide 30 ml 03/12/18 10:39 03/15/18 18:39 Mylanta Oral Suspension - PO 30 ml Q6H PRN Administration DYSPEPSIA Buprenorphine/Naloxone 2 each 03/20/18 16:45 03/25/18 09:43 Suboxone 2mg/0.5mg Sl Film - SL 2 each DAILY SHERITA Administration Cyclobenzaprine HCl 10 mg 03/21/18 22:00 03/25/18 13:23 Flexeril - PO 10 mg TID SHERITA Administration Eucalyptus/Menthol/Phenol/Sorbitol 1 each 03/12/18 10:39 Cepastat Lozenge - MM Q4H PRN SORE THROAT Gabapentin 600 mg 03/13/18 15:45 03/25/18 13:23 Neurontin - PO 600 mg TID SHERITA Administration Guaifenesin 10 ml 03/12/18 10:39 Robitussin Dm - PO Q6H PRN COUGH Ibuprofen 400 mg 03/12/18 10:39 Motrin - PO Q6H PRN Pain Level 4-6 Loperamide HCl 4 mg 03/12/18 10:39 Imodium - PO Q6H PRN DIARRHEA Magnesium Citrate 300 ml 03/12/18 10:39 Citroma - PO Q48H PRN CONSTIPATION Magnesium Hydroxide 30 ml 03/12/18 10:39 Milk Of Magnesia - PO DAILY PRN CONSTIPATION Melatonin 5 mg 03/12/18 22:00 03/21/18 21:25 Melatonin PO 5 mg HS PRN Administration INSOMNIA Nicotine 14 mg 03/12/18 10:39 Nicoderm Patch - TD DAILY PRN WITHDRAWAL(CONT SUBST) Nicotine Polacrilex 2 mg 03/12/18 10:39 Nicorette Gum - BUC Q2H PRN NICOTINE REPLACEMENT RX Non-Formulary Medication 1 each 03/13/18 15:45 03/25/18 09:44 Elviteg/Cob/Emtri/Tenof Alafen [Genvoya Tablet] PO 1 each DAILY SHERITA Administration Pantoprazole Sodium 20 mg 03/15/18 16:00 03/25/18 09:43 Protonix - PO 20 mg DAILY SHERITA Administration Multivit/Folic Acid/Iron 1 tab 03/13/18 10:00 03/25/18 09:43 Vitamins (Sjr) - PO 1 tab DAILY SHERITA Administration Pseudoephedrine/Triprolidine 1 combo 03/12/18 10:39 Actifed - PO TID PRN NASAL CONGESTION Thiamine HCl 100 mg 03/12/18 22:00 03/24/18 21:04 Vitamin B1 - PO 100 mg HS SHERITA Administration Trazodone HCl 50 mg 03/13/18 22:00 03/24/18 21:05 Desyrel - PO 50 mg HS SHERITA Administration Current Side Effect: No Lab tests ordered: Yes Lab tests reviewed: Yes Provider note:: Patient will complete this program on 03/26/18. He has met his treatment goals and will continue to address his issues in outpatient treatment at [facility] [address] [place] [address]. Told sports writer that from his participation in this program, he has learned to stay busy , fill his free time with thing to do while staying away from peple, places and things. He is stable for discharge on 03/26/18 Total face to face time:: 35 Mental Status Exam - Mental Status Exam Alert and Oriented to: Time, Place, Person Cognitive Function: Fair Patient Appearance: Well Groomed Mood: Hopeful, Euthymic Affect: Appropriate Patient Behavior: Cooperative Speech Pattern: Clear Voice Loudness: Normal Thought Process: Intact, Goal Oriented Thought Disorder: Not Present Hallucinations: Denies Suicidal Ideation: Denies Homicidal Ideation: Denies Insight/Judgement: Fair Sleep: Fair Appetite: Good Muscle strength/Tone: Normal Gait/Station: Normal Psychiatric Treatment Plan - Problem List (1) Opioid dependence Current Visit: No (2) Nicotine dependence Current Visit: Yes Qualifiers: Nicotine product type: cigarettes Substance use status: in withdrawal Qualified Code(s): F17.213 - Nicotine dependence, cigarettes, with withdrawal (3) Substance induced mood disorder Current Visit: Yes (4) Substance-induced sleep disorder Current Visit: Yes (5) HIV (human immunodeficiency virus infection) Current Visit: Yes Comment: on Genvoya (6) Neuropathy Current Visit: No (7) Hepatitis C Current Visit: Yes (8) PPD positive Current Visit: Yes Initial treatment plan: Patient will be discharged tomorrow and referred to [facility] for outpatient treatment
[2018-03-25] MEDS: THIAMINE HCL 100 MG TABLET (FP) PO SCH (21:40)
[2018-03-25] MEDS: traZODone HCL 50 MG TABLET (FP) PO SCH (21:40)
[2018-03-26] MEDS: CYCLOBENZAPRINE HCL 10 MG TABLET (FP) PO SCH (06:06)
[2018-03-26] MEDS: GABAPENTIN PO SCH (06:06)
[2018-03-26 06:51] VITALS: BP 108/70; PULSE 98; TEMP 97.3
[2018-03-26] MEDS: PRENATAL VITAMINS W/ FOLIC ACID TABLET (FP) PO SCH (09:11)
[2018-03-26] MEDS: PANTOPRAZOLE 20 MG TABLET (FP) PO SCH (09:11)
[2018-03-26] MEDS: BUPRENORPHINE/NALOXONE 2 MG/0.5 MG FILM PACKET SL SCH (09:11)
== END 2018-03-26 09:45 | disposition home or self-care (01) | DRG 772 ==
LOC: YASAS 15:28 → Y3W 15:29
PROVIDERS: ADMIT Psychiatry & Neurology Psychiatry; ATTEND Psychiatry & Neurology Psychiatry
PROC: HZ42ZZZ Group Counseling for Substance Abuse Treatment, Cognitive-Behavioral (ICD-10-PCS; principal; 2018-03-12)
DX: F11.20 Opioid dependence, uncomplicated (principal); F17.213 Nicotine dependence, cigarettes, with withdrawal; F19.24 Other psychoactive substance dependence with psychoactive substance-induced mood disorder; F19.282 Other psychoactive substance dependence with psychoactive substance-induced sleep disorder; Z21 Asymptomatic human immunodeficiency virus [HIV] infection status; G62.9 Polyneuropathy, unspecified; B18.2 Chronic viral hepatitis C; R76.11 Nonspecific reaction to tuberculin skin test without active tuberculosis; R74.0 Nonspecific elevation of levels of transaminase and lactic acid dehydrogenase [LDH]; K21.9 Gastro-esophageal reflux disease without esophagitis
CPT/HCPCS: 36415; 80076; 85025; 90670